=== PATIENT | female | born 1950 | race Caucasian/White ===

== ENCOUNTER 2025-04-03 13:08 | Outpatient (AMB) | payer MEDICARE, SELFPAY ==
--- OUTSIDE RECORDS SUMMARY | 2024-11-27 09:00 | XMS_ITS ---
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 Name Role Phone MALINDA Villalobos, BRIGID Primary Care Pr Esha Munroe Unavailable [phone] REASON FOR VISIT LR MEDICARE PE Encounters Encounter Location Date Provider Diagnosis [facility] [address] [place] [address] [address] [place] [address] 11/27/2024 Esha Alvarez Plan Of Treatment Next Appt Details Provider Name:Esha eisenbergangie, 04/23/2025 01:40:00 PM, [address] [facility], [address], [place], [address], Progress Notes * ANA MCCARTYDOB:1950 (74 yo F)Acc No.[id number]:11/27/2024 PROGRESS NOTES Patient: ANA VALENTE Appointment Provider: César Alvarez M.D. :1950 A ge:74 Y S ex:Female Date:11/27/2024 Address:[address] [place], [place] [id number] Pcp:BRIGID CHOI M.D. Subjective: * Chief Complaints: * 1 . LR MEDICARE PE. * Medical History: Objective: * Vitals: Assessment: Plan: * Treatment: * Images: Billing Information: * Visit Code: * Procedure Codes: * Electronic signature of Laura Alvarez MD on 04/03/2025 at 01:20 PM EDT Sign off status: Pending * Appointment Provider: César Alvarez M.D. Date: 0 11/27/2024 Generated for Ben rivero/Orville/Zahra on: 0 04/03/2025 01:20 PM EDT
--- NOTE | 2025-04-03 13:13 | MHC.OFFVIS ---
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 Later she was diagnosed with probable Alzheimer type of dementia. Head CT in 2019 revealed [id number] diffuse cerebral atrophy. Other than forgetfulness, she also suffered from anxiety. She was initially treated with donepezil for cognitive issues and sertraline for anxiety. [facility] Medical History (Updated 04/03/25 @ 13:16 by Donny To MD) Depression Anxiety Alzheimer dementia Review of Systems Const Details: Constitutional:?No fever, chills, fatigue, weight loss, or night sweats. HEENT:?No headache, vision changes, hearing loss, nasal congestion, sore throat. Neurological:?No dizziness, syncope, seizures, numbness, tingling, weakness, tremors, memory loss. Psychiatric:?No anxiety, depression, mood swings, sleep disturbance, or hallucinations. Endocrine:?No heat/cold intolerance, polydipsia, polyuria, or hair/skin changes. Hematologic/Lymphatic:?No easy bruising, bleeding, or lymphadenopathy. Integumentary (Skin):?No rash, lesions, itching, or color changes. ? Physical Exam Neuro Other: Mental Status: Alert and oriented to person, place, and time. Normal attention. Normal spontaneous speech, fluency, and comprehension. No obvious issues with mood and memory. Affect is appropriate. Cranial Nerves: CN II: Visual reddy full to confrontation, visual acuity intact. CN III, IV, : Pupils equal, round, reactive to light and accommodation. Extraocular movements are normal. CN V: Facial sensation is normal. CN VII: Facial movements symmetrical. CN VIII: Hearing intact to bedside conversation is normal. CN IX, X: Palate elevates symmetrically. CN XI: Shoulder shrug and head turn symmetrical. CN XII: Tongue midline without atrophy or fasciculations. Extrapyramidal: Full facial expressions and blinking. No rigidity. Movements are appropriate with no tremor or abnormality. Speech: Normal; no dysarthria or tremor. Assessment & Plan Assessment & Plan (1) Alzheimer dementia: Code(s): G30.9 - Alzheimer's disease, unspecified; F02.80 - Dementia in other diseases classified elsewhere, unspecified severity, without behavioral disturbance, psychotic disturbance, mood disturbance, and anxiety Category: Medical Qualifiers: Alzheimer's disease onset: late onset Dementia severity: mild Dementia behavioral or psychological symptom: with anxiety Qualified Code(s): G30.1 - Alzheimer's disease with late onset; F02.A4 - Dementia in other diseases classified elsewhere, mild, with anxiety Plan Impression: Mild to moderate Alzheimer dementia (today's MOCA 23) with mild anxiety Rec: a: Memantine 5mg bid b: Donepezil 5mg a day c: Sertraline 25mg a day d: Stay active, physically and socially e: Minimize alcohol use Medications: New donepezil 5 mg PO DAILY 90 tabs 0RF Coding Level of Care Code Est Pt Level 5 (23249) Diagnoses Mild late onset Alzheimer's dementia with anxiety G30.1; F02.A4 Alzheimer's disease onset: late onset Dementia severity: mild Dementia behavioral or psychological symptom: with anxiety
--- OUTSIDE RECORDS SUMMARY | 2025-04-03 13:20 | XMS_ITS ---
Author Name [facility] Organization Unknown Care Team Organization Name Specialty Phone Email Start Date End Da te [facility] HERB PETTY Primary Care 07/19/2022 04/29/2024
== END 2025-04-03 13:30 | disposition home or self-care (01) ==
LOC: HO.HSM 13:09
PROVIDERS: PCP Internal Medicine; Visit Provider Psychiatry & Neurology Neurology
DX: G30.1 Alzheimer's disease with late onset (principal); F02.A4 Dementia in other diseases classified elsewhere, mild, with anxiety
CPT/HCPCS: 99214

== ENCOUNTER → 2025-04-03 13:08 | Outpatient (BNVA) | payer MEDICARE, SELFPAY | PROVIDERS: PCP Internal Medicine; Visit Provider Psychiatry & Neurology Neurology | DX: G30.1 Alzheimer's disease with late onset (principal); F02.A4 Dementia in other diseases classified elsewhere, mild, with anxiety | CPT/HCPCS: 99212 ==